=== PATIENT | female | born 1955 | race African-American/Black ===

== ENCOUNTER 2016-11-28 15:24 | Emergency (ER) | payer MEDICAID, OTHER ==
[~2016-11-28] VITALS: Ht 175.3 cm; Wt 87.0 kg
[2016-11-28] MEDS ORDERED: vitamins (15:38)
[2016-11-28] MEDS ORDERED: OMEG1CAP17 PO (15:38)
[2016-11-28] MEDS ORDERED: GLYB2.5T4 PO (15:38)
[2016-11-28] MEDS ORDERED: PRAV10TA35 PO (15:38)
[2016-11-28] MEDS ORDERED: mapap (15:38)
[2016-11-28] MEDS ORDERED: METH500T PO (15:38)
[2016-11-28] MEDS ORDERED: GLIP5TAB12 PO (15:38)
[2016-11-28] MEDS ORDERED: ASPI-1035 PO (15:38)
[2016-11-28] MEDS ORDERED: CARV3.1242 PO (15:38)
[2016-11-28] MEDS ORDERED: ONDANSETRON 4MG ODT PO ONE (16:45)
[2016-11-28] MEDS ORDERED: MORPHINE SULFATE 10 MG/ML CPJ IM ONE (16:45)
[2016-11-28] MEDS ORDERED: DIAZEPAM 2 MG TABLET PO ONE (16:45)
[2016-11-28 18:43] LABS: BASOPHILS % 0.5 % (0.0-2.0); EOSINOPHILS % 1.7 % (0.0-5.0); LYMPHOCYTES % 20.3 % (20.0-50.0); MEAN CORPUSCULAR HEMOGLOBIN 28.2 pg (28.0-32.0); MEAN CORPUSCULAR HGB CONC 32.6 g/dL (31.0-37.0); MEAN CORPUSCULAR VOLUME 86.5 fL (81.0-99.0); MEAN PLATELET VOLUME 8.3 fl (7.4-10.4); MONOCYTES % 5.8 % (2.0-8.0); NEUTROPHILS % 71.7 % (40.0-76.0); PLATELET 313 x1000/uL (130-400); RED BLOOD CELL COUNT 4.27 mill/uL (4.2-5.4); RED CELL DISTRIBUTION WIDTH 14.3 % (11.6-14.6)
[2016-11-28] MEDS ORDERED: ACETAMINOPHEN 500MG TABLET PO ONE (18:45)
[2016-11-28 18:49] LABS: CHLORIDE 107 mEq/L (98-107); INDEX HEMOLYSI 1 (1-3); INDEX ICTERIC 1 (1-4); INDEX LIPEMIC 1 (1-3)
[2016-11-28 18:55] LABS: ALBUMIN 3.6 g/dL (3.4-5.0); ANION GAP 10; CALCIUM 10.4 mg/dL (8.5-10.1); CARBON DIOXIDE 27 mEq/L (21-32); UREA NITROGEN BLOOD 18 mg/dL (7-21)
[2016-11-28 18:59] LABS: ALANINE AMINOTRANSFERASE 44 IU/L (13-61); eGFR > 60 mL/min (>60)
[2016-11-28 20:29] VITALS: BP 141/68
== END 2016-11-28 20:30 | disposition home or self-care (01) ==
LOC: ER 17:16
DX: M50.322 Other cervical disc degeneration at C5-C6 level (principal); M50.323 Other cervical disc degeneration at C6-C7 level; I50.9 Heart failure, unspecified; E11.9 Type 2 diabetes mellitus without complications; E78.00 Pure hypercholesterolemia, unspecified; Z79.82 Long term (current) use of aspirin; Z79.899 Other long term (current) drug therapy
CPT/HCPCS: 36415; 72040; 72141; 80053; 83605; 85025; 85651; 96372; 99285; J2270; Q0162; Z7610; L0172

== ENCOUNTER 2025-02-13 11:22 | Emergency (ER) | payer MEDICAID ==
[~2025-02-13] VITALS: Ht 165.1 cm; Wt 62.0 kg
[~2025-02-13 11:22] MED LIST: ASPI-1497 PO; CARV3.1242 PO; GLIP5TAB22 PO; GLYB2.5T4 PO; METH500T PO; OMEG1CAP17 PO; PRAV10TA35 PO; mapap; vitamins
[2025-02-13 11:25] VITALS: TEMP 36.6; O2SAT 97
[2025-02-13] MEDS ORDERED: LIDO-53 TP (12:20)
[2025-02-13] MEDS: KETOROLAC 30MG/ML VIAL IM ONE (12:24)
[2025-02-13] MEDS: LIDOCAINE 5% PATCH TOP SCH (13:58)
[2025-02-13 13:59] VITALS: BP 148/74; PULSE 74; RESP 16; O2SAT 99
== END 2025-02-13 14:01 | disposition home or self-care (01) ==
LOC: ER 11:22
DX: E11.9 Type 2 diabetes mellitus without complications (principal); M54.50 Low back pain, unspecified; I11.0 Hypertensive heart disease with heart failure; I50.9 Heart failure, unspecified; E78.00 Pure hypercholesterolemia, unspecified; Z79.899 Other long term (current) drug therapy; Z98.890 Other specified postprocedural states
CPT/HCPCS: 99283; 72170; 96372; J1885